=== PATIENT | male | born 1950 | race Caucasian/White ===

== ENCOUNTER 2018-07-06 05:19 | Inpatient (IN) ==
[2018-07-06] MEDS ORDERED: ceFAZolin 2 GM/NS 100 ML IV IV.SIG SCH ×2 (05:59)
[2018-07-06] MEDS ORDERED: Sodium Chlor 0.9% Inj 500 ML IV.SIG SCH ×2 (06:00)
[2018-07-06] MEDS ORDERED: Metoprolol Tartrate 25 MG Tablet PO SCH ×2 (06:00)
[2018-07-06] MEDS ORDERED: Chlorhexidine 4% Topical 120 APPLIC/120 ML Bottle TOPICAL SCH (06:00)
[2018-07-06] MEDS ORDERED: Chlorhexidine Gluconate 2% 1 Pack (2 Cloths) TOPICAL SCH ×2 (06:00)
[2018-07-06] MEDS ORDERED: Bupivacaine Liposomal PF 1.3% Inj 20 ML Vial ONE (06:04)
[2018-07-06] MEDS ORDERED: Lidocaine PF 1% Inj 5 ML Vial ONE (06:07)
[2018-07-06] MEDS ORDERED: Bupivacaine/Dextrose 0.75% Inj 2 ML Ampul ONE (06:15)
[2018-07-06] MEDS ORDERED: Propofol Inj 500 MG/50 ML Vial ONE (06:15)
[2018-07-06] MEDS ORDERED: Sodium Chlor 0.9% Inj 40 ML, Bupivacaine Liposo PF 1.3% Inj 20 ML P-ARTICULR SCH ×2 (07:00)
[2018-07-06] MEDS ORDERED: TRANEXAMIC ACID IV.SIG SCH ×2 (07:00→10:00)
[2018-07-06] MEDS ORDERED: SODIUM CHLOR 0.9% IV.SIG SCH ×2 (07:00→10:00)
[2018-07-06] MEDS ORDERED: Zolpidem Tartrate 5 MG Tablet PO PRN (09:01)
[2018-07-06] MEDS ORDERED: Morphine Inj 4 MG/ML Vial IV.PUSH PRN (09:01)
[2018-07-06] MEDS ORDERED: Post-op Orders (for Pharmacy) OTHER STA (09:01)
[2018-07-06] MEDS ORDERED: Bisacodyl 10 MG Supp RECTAL PRN (09:01)
[2018-07-06] MEDS ORDERED: Tranexamic Acid Inj 0 MG in Sodium Chlor 0.9% Inj 100 ML IV.SIG ONE (09:01)
[2018-07-06] MEDS ORDERED: Acetaminophen 325 MG Tablet PO PRN (09:01)
[2018-07-06] MEDS ORDERED: Aluminum/Magnesium/Simethacone Susp 30 ML UDC PO PRN (09:01)
--- NOTE | 2018-07-06 09:16 | P.OP ---
- Preoperative Diagnosis (1) Post-traumatic osteoarthritis of left knee - Postoperative Diagnosis (1) Post-traumatic osteoarthritis of left knee Date of procedure: 07/06/18 Procedure: Left total knee arthroplasty using [place] Triathlon prosthesis (uncemented). Anesthesia: regional (Adductor canal block), local (With Exparel), spinal Surgeon: Geal Worthy MD [employer] Pits Supervisor: VALDO Monroe Estimated blood loss (mL): 250 Tourniquet time (min): 0 Pathology: none sent Operation and Findings: Indications and Findings: This 67-year-old man had an anterior cruciate ligament reconstruction many years ago. He did relatively well until 2001 when he stood twisted his knee. He had arthroscopic knee surgery. About the past year he has had progressive worsening of arthritis in his knee with complaints of pain on ambulation, wrist pain, pain was standing from a seated position, crepitation and mechanical symptoms with the knee. His ambulation tolerance is only 1 mile with pain slowly. Treatment has included an times has included surgery in the past as noted, analgesics, anti-inflammatory agents, intra- articular corticosteroid injections, a stem cell injection and ambulatory aids. These have not given him any improvement in his condition. Physical findings showed surgical incisional scars with degenerative varum, crepitation throughout the entire range of motion, palpable osteophytes and instability. There was medial laxity especially. X-rays show severe osteoarthritis with loss of articular cartilage to [id number] particularly in the medial compartment with medial, lateral and patellofemoral osteophytes, medial eburnation and evidence of a prior anterior cruciate ligament reconstruction. Operative findings: There was severe osteoarthritis in the knee with loss of articular cartilage to [id number] in the medial and lateral compartments and also in the patellofemoral compartment. There were large osteophytes. There is significant eburnation throughout the knee. There were tunnels for prior anterior cruciate ligament reconstruction. The prosthesis used was a [place] Triathlon prosthesis. The femur was a size 6, uncemented, cruciate retaining. The tibial baseplate was a size 7 Tritanium with a 9 mm, cruciate retaining, X3 polyethylene spacer. The patella was a size 38 mm Tritanium backed asymmetric. The patient was brought to the clean-air operating suite after administration of a regional anesthetic by adductor canal block. A spinal anesthetic was administered. The position was supine with a small bolster under the hip on the operative side. A pneumatic tourniquet was applied to the upper thigh. The lower extremity was prepped with alcohol, Hibiclens and ChloraPrep and draped in the usual manner with the knee draped free. An appropriate timeout procedure was carried out. An incision was made from about 3 fingerbreadths above the superior medial pole of patella down the tibial tubercle on the medial side. The incision was deepened through the subcutaneous tissue to the retinacular structures which were exposed medially and laterally. A medial retinacular incision was made from the superior medial pole of patella down the tibial tubercle and up into the quadriceps tendon, splitting it longitudinally in the medial one third. The patella was reflected. The infrapatellar fat pad was debulked. The anterior cruciate ligament was excised. Medial and lateral meniscectomies were initiated. Fenestrations were made in the distal femur and proximal tibia for intramedullary referencing guides. The distal femoral cutting guide and jig were assembled for a 5, 8 mm cut. When this was fit into position,the cutting block was stabilized with pins. The jig was removed. The distal femoral cut was completed with the oscillating saw. The sizing guide was positioned in place along Whitesides line and the epicondylar axis and stabilized with pins. The femoral size was determined as noted above. The 4-in-1 cutting block was positioned in place. Anterior and posterior cuts were made followed by posterior and anterior chamfer cuts taking care to prevent injury to ligamentous structures. Osteophytes were trimmed from the distal femur. A bone plug was placed into the fenestration of the distal femur. The proximal tibia was exposed. The medial and lateral meniscectomies were completed. The proximal tibial cutting guide was positioned in place and stabilized with a pin for rotation. The depth of cut was verified with a stylus off the high side. The cutting block was stabilized with pins. The jig was removed. The depth of cut was verified and adjusted appropriately with the use of the spacer block. The proximal tibial cut was made with the oscillating saw taking care to prevent injury to neurovascular and ligamentous structures. Proximal tibial bone was removed. Local anesthetic was administered with Exparel in the posterior capsule. The fenestration in the tibia was plugged with a bone graft. The fenestration from the anterior cruciate ligament tunnel was likewise with a bone graft from the tibial resection. The tibial baseplate trial was positioned in place. After verifying the appropriate size, the base plate trial was positioned in place along with its spacer. The femoral component was impacted into place. The alignment was checked. The tibial baseplate was pinned in place on the tibia. Attention was directed to the patella. The patella drill guide was positioned in place for the appropriate sized patella. Patellar drilling was then carried out. The trial patella was positioned in place. The knee was taken through a range of motion which was easily 0 extension to 150. The patella trial was removed. The femoral drill holes were made. The femoral trials were removed. The tibial spacer was removed. A bone plug was placed into the proximal tibia. The tibial punch was impacted through the proximal tibial punch guide. This was all removed followed by placement of the tibial drill guide. The tibial drill holes were made. The guide was removed. The cut ends of bone were cleaned with pulse lavage. The tibial baseplate was impacted into place and seated appropriately. The spacer was inserted. The the femoral component was impacted into place and seated appropriately. The patella component was seated with the patellar vice and tightened appropriately. The knee was taken through a range of motion which was comparable to the previous range of motion with excellent stability in flexion and extension and appropriate patellofemoral tracking. The remainder of the Exparel was injected throughout the knee as a local anesthetic. Drains were brought out the superior lateral aspect of the suprapatellar pouch. Wound closure commenced using 0 Vicryl interrupted [id number] sutures for the capsular and fascial structures, 2-0 Vicryl interrupted simple sutures with buried knots for the subcutaneous tissues and 4-0 Monocryl, continuous subcuticular closure for the skin. The wound was dressed with Dermabond Prineo followed by a dry sterile dressing. Sterile soft roll with a cooling pad and Biju bandage from the base of the toes to mid thigh were applied. Patient was transferred from the operating room to the recovery room in satisfactory condition having tolerated procedure well. Counts were correct. Specimens: None. Estimated blood loss: 250 mL
--- NOTE | 2018-07-06 09:27 | P.DCO ---
- Physical Therapy Physical Therapy: Gait training Knee: Total knee, Protocol: Left, Gait training, Full weight bearing Left Lower Extremity Weight Bearing: Weight bearing as tolerated Left Lower Extremity Range of Motion: Active ROM (Active, active assisted, passive range of motion. Range of motion goal is 0 extension to 140 of flexion. Range of motion achieved in the operating room was 0 extension to 150 of flexion.) - Nursing Nursing: Dressing changes Dressing changes: Daily dressing change (Do not remove Dermabond Prineo.), Coverderm/Primapore - Certification Need for Home Health services: I have seen patient Thierry Desai on 07/06/18. My clinical findings support the need for the requested home health care services because: Need for Home Health Services: Limited mobility due to disease progression, Limited ability to care for self, High risk of falls Homebound Certification: I certify that my clinical findings support that this patient is homebound because: Homebound Certification: Post-op weakness, Unsteady gait/balance, Unsafe to leave home unassisted
--- NOTE | 2018-07-06 10:12 | XR ---
EXAM DATE: 07/06/2018 9:59 AM EDT AGE/SEX: 67 years / Male INDICATIONS: Post op left total knee replacement. CLINICAL DATA: This is the patient's initial encounter. Patient reports that signs and symptoms have been present for 1 day and indicates a pain score of 0/10. MEDICAL/SURGICAL HISTORY: Hypertension. None. COMPARISON: No prior exams available for comparison. FINDINGS: Postoperative left total knee replacement. Drain in the soft tissues. Normal alignment. No complicati on identified. CONCLUSION: Postoperative left total knee replacement with normal alignment. Electronically signed by: Jeff Coleman MD 07/06/2018 10:11 AM EDT
[2018-07-06] MEDS: Ketorolac Inj 30 MG/ML (IVP) Vial IV.PUSH SCH ×3 (10:25→21:22)
--- NOTE | 2018-07-06 10:25 | P.CONIM ---
History of Present Illness Service: [facility] Consult date: 07/06/18 Requesting Physician: Gael Worthy Reason for Consult: MEDICAL MANAGEMENT Primary Care Provider: Dewayne Little DO Family Provider: Dewayne Little DO Chief Complaint: MEDICAL MANAGEMENT SP LEFT TKA History of Present Illness: Patient is a 67-year-old gentleman who underwent a left total knee arthroplasty by Dr. Worthy today. We have now been consulted to help regarding medical management. His past medical history is significant for enlarged prostate, GERD, history of urinary frequency, hypertension, hypothyroidism, joint pain, osteoporosis, rheumatoid arthritis, and glasses. Past surgical history includes arthroscopy of the left knee, repair of the anterior cruciate ligament of the left knee, and right rotator cuff repair Review of Systems All other systems reviewed negative except as stated in HPI [facility] - History History Provided By: Patient - Medical History Medical History: Medical History (Last Reviewed 07/06/18 @ 05:48 by Marlen Arango) Enlarged prostate GERD (gastroesophageal reflux disease) History of urinary frequency Hypertension Hypothyroidism Joint pain Osteoporosis Rheumatoid arthritis Wears glasses - Surgical History Surgical History: Surgical History (Last Reviewed 07/06/18 @ 05:48 by Marlen Arango) History of arthroscopy of left knee History of repair of anterior cruciate ligament of left knee History of repair of right rotator cuff - Family History Family History: Family History (Last Updated 07/06/18 @ 10:20 by Reynaldo Cannon DO) Other Family history of hypertension - Tobacco History Second Hand Smoke Exposure: No Tobacco Use In Past 30 Days: Yes Smoking Status: Never smoker Tobacco Type: Smokeless Tobacco - Alcohol History How Often Do You Have a Drink Containing Alcohol: Never - Substance Use History Substance History: No History of Abuse - Travel History History of Recent Travel: No Recent Travel in the [place] Within the Last 8 Weeks: No Recent Travel Out of the Country Within the Last 8 Weeks: No Medications and Allergies Active Medications: Active Medications Acetaminophen (Tylenol) 650 mg PO Q6H PRN PRN Reason: Pain Less Than 3 On Scale Hydrocodone Bitart/Acetaminophen ([place] 7.5/325) 1 tab PO Q4H PRN PRN Reason: PAIN SCALE 4 TO 6 MODERATE Hydrocodone Bitart/Acetaminophen ([place] 7.5/325) 2 tab PO Q6H PRN PRN Reason: PAIN SCALE 7 TO 10 SEVERE Al Hydrox/Mg Hydrox/Simethicone (Mag-Al Plus Susp Liq) 30 ml PO Q6H PRN PRN Reason: INDIGESTION Al Hydroxide/Mg Hydroxide (Milk Of Magnesia Liq) 30 ml PO BID PRN PRN Reason: Mild Constipation Amlodipine Besylate (Norvasc) 5 mg PO DAILY [facility] Aspirin (Aspirin Chew) 81 mg PO BID [facility] Bisacodyl (Dulcolax Supp) 10 mg RECTAL DAILY PRN PRN Reason: SEVERE CONSITIPATION Chlorhexidine Gluconate (Chlorhexidine 2% Cloth) 3 pack TOPICAL DRAMATIC DIRECTOR [facility] Stop: 07/09/18 05:55 Last Admin: 07/06/18 05:35 Dose: 3 pack Chlorhexidine Gluconate (Hibiclens 4% Topical) 1 applicatio TOPICAL ONCE [facility] Stop: 07/10/18 05:59 Sodium Chloride 40 ml/ (Bupivacaine Liposome 20 ml) 0 ml P-ARTICULR ONCE [facility] Stop: 07/06/18 13:00 Last Admin: 07/06/18 07:15 Dose: 1 bag Cyanocobalamin (Vitamin B12) 1,000 mcg PO DAILY [facility] Diphenhydramine HCl (Benadryl) 25 mg PO Q6H PRN PRN Reason: ITCHING Folic Acid (Folic Acid) 1 mg PO DAILY [facility] HCTZ/Spironolactone (Aldactazide 25/25 Mg) 1 tab PO BID [facility] Lactated Ringer's (Lr 1000 Ml Inj) 1,000 mls @ 30 mls/hr IV.SIG .Q24H [facility] Stop: 07/09/18 05:55 Last Infusion: 07/06/18 08:34 Dose: Infused Sodium Chloride (Ns Inj) 500 mls @ 30 mls/hr IV.SIG .Q10H [facility] Stop: 07/09/18 05:55 Cefazolin Sodium 2,000 mg/ (Sodium Chloride) 100 mls @ 200 mls/hr IV.SIG DRAMATIC DIRECTOR [facility] Stop: 07/06/18 23:59 Last Infusion: 07/06/18 07:04 Dose: Infused Tranexamic Acid 918 mg/ Sodium (Chloride) 109.18 mls @ 200 mls/hr IV.SIG ONCE [facility] Stop: 07/06/18 13:00 Last Infusion: 07/06/18 07:23 Dose: Infused Tranexamic Acid 918 mg/ Sodium (Chloride) 109.18 mls @ 200 mls/hr IV.SIG ONCE [facility] Stop: 07/06/18 11:00 Last Admin: 07/06/18 09:55 Dose: 200 mls/hr Cefazolin Sodium 1,000 mg/ (Sodium Chloride) 100 mls @ 200 mls/hr IV.SIG Q6H [facility] Stop: 07/06/18 22:29 Lactated Ringer's (Lr 1000 Ml Inj) 1,000 mls @ 80 mls/hr IV.CONT .[id number] [facility] Ketorolac Tromethamine (Toradol Inj) 15 mg IV.PUSH Q6H [facility] Stop: 07/08/18 04:01 Lactulose (Lactulose Liq) 30 ml PO DAILY PRN PRN Reason: SEVERE CONSITIPATION Levothyroxine Sodium (Synthroid) 50 mcg PO DAILY@0600 [facility] Losartan Potassium (Cozaar) 100 mg PO DAILY [facility] Metformin HCl (Glucophage) 500 mg PO BID [facility] Methotrexate (Rheumatrex) 10 mg PO DAILY [facility] Metoprolol Tartrate (Lopressor) 25 mg PO DRAMATIC DIRECTOR [facility] Stop: 07/09/18 05:55 Morphine Sulfate (Morphine Inj) 2 mg IV.PUSH Q3H PRN PRN Reason: BREAKTHROUGH PAIN Multivitamins/Minerals (Theragran-M) 1 tab PO DAILY [facility] Ondansetron HCl (Zofran Odt) 4 mg PO Q6H PRN PRN Reason: NAUSEA OR VOMITING Pantoprazole Sodium (Protonix) 20 mg PO DAILY [facility] Povidone Iodine (Betadine 5% Antisepsis Kit) 1 applicatio EACH NARE DRAMATIC DIRECTOR [facility] Stop: 07/09/18 05:55 Last Admin: 07/06/18 06:05 Dose: 1 applicatio Prednisone (Deltasone) 10 mg PO DAILY [facility] Pyridoxine HCl (Vitamin B-6) 100 mg PO DAILY [facility] Senna/Docusate Sodium (Mylene-Colace) 1 tab PO BID [facility] Sennosides (Senokot) 17.2 mg PO BID PRN PRN Reason: Moderate Constipation Sodium Chloride (Ns Flush) 2 ml IV.FLUSH BID [facility] Sodium Chloride (Ns Flush) 2 ml IV.FLUSH PRN PRN PRN Reason: FLUSH AFTER USING IV ACCESS Zolpidem Tartrate (Ambien) 5 mg PO HS PRN PRN Reason: INSOMNIA Allergies Allergy/AdvReac Type Severity Reaction Status Date / Time No Known Allergies Allergy Verified 07/06/18 05:48 Home Medications Medication Instructions Recorded Confirmed Type amlodipine 5 mg PO DAILY 06/21/18 07/06/18 History aspirin [Aspirin Low Dose] 81 mg PO DAILY 06/21/18 07/06/18 History folic acid 1 mg PO DAILY 06/21/18 07/06/18 History levothyroxine 50 mcg PO DAILY 06/21/18 07/06/18 History losartan 100 mg PO DAILY 06/21/18 07/06/18 History mecobalamin (vitamin B12) 1,000 mcg SUBLINGUAL DAILY 06/21/18 07/06/18 History metformin 500 mg PO BID 06/21/18 07/06/18 History methotrexate sodium 4 tab PO DAILY 06/21/18 07/06/18 History btyewimr-yje-LR-lycopen-lutein 1 tab PO DAILY 06/21/18 07/06/18 History [Centrum Silver] omeprazole 20 mg PO DAILY 06/21/18 07/06/18 History potassium gluconate 550 mg PO DAILY 06/21/18 07/06/18 History prednisone 10 mg PO DAILY 06/21/18 07/06/18 History pyridoxine (vitamin B6) 100 mg PO DAILY 06/21/18 07/06/18 History spironolacton-hydrochlorothiaz 1 tab PO BID 06/21/18 07/06/18 History Exam Vital signs: Vital Signs 07/06/18 06:01 07/06/18 06:17 07/06/18 09:28 Temperature 97.1 F L 97.5 F L Pulse Rate 92 H 86 80 Respiratory Rate 18 14 Blood Pressure 133/90 101/60 Pulse Oximetry 100 99 98 07/06/18 09:30 07/06/18 09:45 Temperature Pulse Rate 81 79 Respiratory Rate 14 14 Blood Pressure 105/63 Pulse Oximetry 99 100 Intake & Output 07/05/18 07/06/18 07/06/18 18:59 06:59 18:59 Intake Total 2409.18 / 2409.18 Output Total 250 / 250 Balance 2159.18 / 2159.18 Weight 91.8 kg Intake: IV 1209.18 / 1209.18 LR 1000 mL Inj 1,000 ML @ 30 1000 / 1000 mls/hr IV.SIG .Q24H [facility] Rx#: [id number] Cyklokapron Inj 918 MG In NS 109.18 / 109.18 Inj 100 ML @ 200 mls/hr IV.SIG ONCE [facility] Rx#:[id number] Ancef Inj 2,000 MG In NS Inj 80 100 / 100 ML @ 200 mls/hr IV.SIG DRAMATIC DIRECTOR [facility] Rx#:[id number] Anesthesia Amount 1200 / 1200 Output: Estimated Blood Loss 250 / 250 Other: Weight On Admission 91.777 kg Narrative: GENERAL: Awake alert and oriented 3 talkative and cooperative appears to be in good spirits does not appear to be in much pain SKIN: Warm and dry. HEAD: Atraumatic. Normocephalic. EYES: Pupils equal and round. No scleral icterus. No injection or drainage. EOMI ENT: No nasal bleeding or discharge. Mucous membranes pink and moist. Tongue is midline NECK: Trachea midline. No JVD. Supple CARDIOVASCULAR: Regular rate and rhythm. S1-S2 no S3 or S4 RESPIRATORY: No accessory muscle use. Clear to auscultation. Breath sounds equal bilaterally. GASTROINTESTINAL: Abdomen soft, non-tender, nondistended. Hepatic and splenic margins not palpable. MUSCULOSKELETAL: Extremities without clubbing, cyanosis, or edema. No obvious deformities. Left knee is dressed NEUROLOGICAL: Awake and alert. No obvious cranial nerve deficits. Motor grossly within normal limits. Five out of 5 muscle strength in the arms and legs. Normal speech. PSYCHIATRIC: Appropriate mood and affect; insight and judgment normal. Results - Labs Labs: Laboratory Results - last 24 hr 07/06/18 05:50 Blood Type A Positive Blood Type Recheck Required Antibody Screen Negative - Imaging Impressions Knee X-Ray 07/06/18 08:58 CONCLUSION: Postoperative left total knee replacement with normal alignment. Assessment and Plan - Plan Status post left total knee arthroplasty for severe rheumatoid arthritis and osteoarthritis We will defer management and pain control to orthopedics BPH monitor for issues with urination GERD continue on home medications continue on omeprazole or the equivalent Hypertension continue on home medications-continue on amlodipine, continue on losartan, continue on spironolactone hydrochlorothiazide Hypothyroidism we will check TSH and free T4 and continue home medications continue on 75 MCG's of levothyroxine Rheumatoid arthritis will adjust medications continue on folic acid, continue on methotrexate, continue on prednisone continue on vitamin B6 Diabetes mellitus we will continue sliding scale coverage with Accu-Cheks before meals and at bedtime patient is on metformin at home Continue DVT and GI prophylaxis A.m. labs Physical therapy and occupational therapy to eval and treat Patient will be going home and will need home health care at discharge Code Status: Full code Discussed Condition With: RN and patient Discharge Planning: Once cleared by orthopedic surgery will go home with home health
[2018-07-06] MEDS: SPIRONOLACTONE PO SCH ×2 (10:29→23:13)
[2018-07-06] MEDS: HCTZ PO SCH ×2 (10:29→23:13)
[2018-07-06] MEDS: Levothyroxine 50 MCG Tablet PO SCH (10:29)
[2018-07-06] MEDS: predniSONE 10 MG Tablet PO SCH (10:29)
[2018-07-06] MEDS: amLODIPine 5 MG Tablet PO SCH (10:30)
[2018-07-06] MEDS: Pantoprazole Sodium 20 MG DR Tablet PO SCH (10:30)
[2018-07-06] MEDS: Folic Acid 1 MG Tablet PO SCH (10:30)
[2018-07-06] MEDS: Multivitamin/Minerals Therapeutic Tablet PO SCH (10:49)
[2018-07-06] MEDS ORDERED: Phenylephrine/NS 1000 MCG/10ML Syringe IV.PUSH ONE (12:00)
[2018-07-06] MEDS ORDERED: Lidocaine PF 1% Inj 5 ML Syringe INFILTRATN ONE (12:00)
[2018-07-06] MEDS: Senna/Docusate Sodium 8.6/50 MG Tablet PO SCH (21:21)
[2018-07-06] MEDS ORDERED: Dextrose 50% in Water 50 ML Vial IV.PUSH PRN (22:17)
[2018-07-07] MEDS: Ketorolac Inj 30 MG/ML (IVP) Vial IV.PUSH SCH ×2 (03:59→12:11)
[2018-07-07 05:27] LABS: Baso % (Auto) 0.2 % (0.0-2.0); Eos % (Auto) 0.1 % (0.0-4.0); Hematocrit 35.1 % (39.0-51.0); Hemoglobin 11.7 gm/dL (13.0-17.0); Lymph # (Auto) 2.3 th/mm3 (1.0-4.8); Lymph % (Auto) 10.5 % (9.0-44.0); Mean Corpuscular HGB Conc 33.3 % (32.0-36.0); Mean Corpuscular Volume 93.1 fL (80.0-100.0); Mean Platelet Volume 6.1 fL (7.0-11.0); Mono # (Auto) 1.6 th/mm3 (0.0-0.9); Mono % (Auto) 7.3 % (0.0-8.0); Neut # (Auto) 17.9 th/mm3 (1.8-7.7); Neut % (Auto) 81.9 % (16.0-70.0); Platelet Count 292 th/mm3 (150-450); Red Blood Count 3.77 mil/mm3 (4.50-5.90); Red Cell Distribution Width 17.3 % (11.6-17.2); White Blood Count 21.9 th/mm3 (4.0-11.0)
[2018-07-07 05:46] LABS: Albumin 2.4 g/dL (3.4-5.0); Anion Gap 10 meq/L (5-15); Blood Urea Nitrogen 35 mg/dL (7-18); Calcium 8.9 mg/dL (8.5-10.1); Carbon Dioxide 23.8 meq/L (21.0-32.0); Chloride 104 meq/L (98-107); Glomerular Filtration Rate 59 mL/min (>89); Glucose,Random 171 mg/dL (74-106); Potassium 4.3 meq/L (3.5-5.1); Sodium 138 meq/L (136-145)
[2018-07-07 05:47] LABS: Aspartate Aminotransferase 15 U/L (15-37); Cholesterol 135 mg/dL (120-200); Triglycerides 91 mg/dL (42-150)
[2018-07-07 05:56] LABS: Alanine Aminotransferase 32 U/L (12-78); Alkaline Phosphatase 48 U/L (45-117); Chol/HDL Ratio 1.87 Ratio; Free T4 (Free Thyroxine) 1.05 ng/dL (0.76-1.46); HDL Cholesterol 72.1 mg/dL (40.0-60.0); LDL Cholesterol,Calculated 45 mg/dL (0-99); Thyroid Stimulating Hormone 0.376 uIU/mL (0.358-3.740); Total Protein 6.1 g/dL (6.4-8.2)
--- NOTE | 2018-07-07 06:06 | P.PNOP ---
Subjective Interval history: Postop day #1 He is doing well. He has minimal complaints related to the knee at this time. He is happy with his progress to date. Physical therapy reports that the ambulation distance was 330 feet. The range of motion was 0 extension to 90 of flexion. Physical Exam Vital signs: Vital Signs 07/06/18 06:17 07/06/18 09:28 07/06/18 09:30 Temperature 97.5 F L Pulse Rate 86 80 81 Respiratory Rate 14 14 Blood Pressure 101/60 Pulse Oximetry 99 98 99 07/06/18 09:45 07/06/18 10:00 07/06/18 10:15 Temperature 97.4 F L Pulse Rate 79 79 77 Respiratory Rate 14 16 14 Blood Pressure 105/63 115/72 119/75 Pulse Oximetry 100 100 100 07/06/18 10:30 07/06/18 11:15 07/06/18 18:00 Temperature 97.6 F 97.5 F L Pulse Rate 79 80 102 H Respiratory Rate 17 18 18 Blood Pressure 120/75 123/79 123/79 Pulse Oximetry 97 96 07/06/18 20:00 07/07/18 00:00 07/07/18 04:00 Temperature 97.8 F 98.1 F 97.2 F L Pulse Rate 93 H 89 87 Respiratory Rate 18 18 18 Blood Pressure 119/77 128/79 128/90 Pulse Oximetry 95 95 98 Intake & Output 07/06/18 07/06/18 07/07/18 06:59 18:59 06:59 Intake Total 3198.36 / 3198.36 Output Total 350 / 350 150 / 150 Balance 2848.36 / 2848.36 -150 / -150 Weight 91.8 kg 91.626 kg Intake: IV 1518.36 / 1518.36 LR 1000 mL Inj 1,000 ML @ 30 1000 / 1000 mls/hr IV.SIG .Q24H [facility] Rx#: [id number] Cyklokapron Inj 918 MG In NS 218.36 / 218.36 Inj 100 ML @ 200 mls/hr IV.SIG ONCE [facility] Rx#:[id number] Ancef Inj 1,000 MG In NS Inj 200 / 200 100 ML @ 200 mls/hr IV.SIG Q6H [facility] Rx#:[id number] Ancef Inj 2,000 MG In NS Inj 80 100 / 100 ML @ 200 mls/hr IV.SIG PIG FURNACE [employer]PERATOR [facility] Rx#:[id number] Oral 480 / 480 Anesthesia Amount 1200 / 1200 Output: Urine 100 / 100 Estimated Blood Loss 250 / 250 Wound Drainage 150 / 150 # 2 Left Knee Hemovac 150 / 150 Other: Date of Last Bowel Movement 07/05/18 Weight On Admission 91.777 kg Narrative: He is resting comfortably, supine in bed, in the CPM. The neurovascular status is intact. His dressing is dry and intact. Results - Labs CBC & Chem 7: 07/07/18 04:22 07/07/18 04:22 Laboratory Results - last 24 hr 07/06/18 07/06/18 07/07/18 05:50 21:30 04:22 WBC 21.9 H RBC 3.77 L Hgb 11.7 L Hct 35.1 L MCV 93.1 MCH 31.0 MCHC 33.3 RDW 17.3 H Plt Count 292 MPV 6.1 L Prelim Diff (Auto) Slide review pending Neut % (Auto) 81.9 H Lymph % (Auto) 10.5 [place] % (Auto) 7.3 Eos % (Auto) 0.1 Baso % (Auto) 0.2 Neut # (Auto) 17.9 H Lymph # (Auto) 2.3 [place] # (Auto) 1.6 H Eos # (Auto) 0.0 Baso # (Auto) 0.0 Differential Comment . Sodium Potassium Chloride Carbon Dioxide Anion Gap BUN Creatinine Estimated GFR POC Glucose 314 H Random Glucose Calcium Phosphorus Magnesium Total Bilirubin AST ALT Alkaline Phosphatase Total Protein Albumin Triglycerides Cholesterol LDL Cholesterol, Calc HDL Cholesterol Cholesterol/HDL Ratio TSH Free T4 Blood Type A Positive Blood Type Recheck Required Antibody Screen Negative 07/07/18 04:22 WBC RBC Hgb Hct MCV MCH MCHC RDW Plt Count MPV Prelim Diff (Auto) Neut % (Auto) Lymph % (Auto) [place] % (Auto) Eos % (Auto) Baso % (Auto) Neut # (Auto) Lymph # (Auto) [place] # (Auto) Eos # (Auto) Baso # (Auto) Differential Comment Sodium 138 Potassium 4.3 Chloride 104 Carbon Dioxide 23.8 Anion Gap 10 BUN 35 H Creatinine 1.23 Estimated GFR 59 L POC Glucose Random Glucose 171 H Calcium 8.9 Phosphorus 3.0 Magnesium 2.0 Total Bilirubin 0.2 AST 15 ALT 32 Alkaline Phosphatase 48 Total Protein 6.1 L Albumin 2.4 L Triglycerides 91 Cholesterol 135 LDL Cholesterol, Calc 45 HDL Cholesterol 72.1 H Cholesterol/HDL Ratio 1.87 TSH 0.376 Free T4 1.05 Blood Type Blood Type Recheck Antibody Screen - Imaging Impressions Knee X-Ray 07/06/18 08:58 CONCLUSION: Postoperative left total knee replacement with normal alignment. - Procedures Left total knee arthroplasty using [place] Triathlon prosthesis (uncemented) on 07/06/2018. Assessment and Plan - Ortho Post Op Day # 1 - Problem List (1) Status post total left knee replacement not using cement Code(s): Z96.652 - Presence of left artificial knee joint Status: Acute Plan: Continue postop care and PT. - Assessment and Plan Condition: Good. Orthopedically stable. DVT prophylaxis: TEDs, aspirin, sequentials. Discharge plans: Home with home health care. An appointment was scheduled through the office. Prescriptions: [place] 7.5/325; Patient is having significant pain caused by a total knee arthroplasty which will last more than 3 days. Trial of Tylenol has not helped. I believe that it is medically necessary to treat patients pain because it is affecting patients ability to participate in postoperative rehabilitation and perform activities of daily living in a comfortable and efficient manner.
[2018-07-07] MEDS: Levothyroxine 50 MCG Tablet PO SCH (06:28)
--- NOTE | 2018-07-07 06:53 | P.DS ---
Date of admission: 07/06/18 05:19 Primary care physician: Dewayne Little DO Attending physician on discharge: Gael Worthy Anticipated date of discharge: 07/07/18 Brief History from admission: This 67-year-old man has had long-standing left knee secondary to injuries in the past with a prior anterior cruciate ligament reconstruction. He has had progressive worsening of the knee in spite of conservative measures with anti- inflammatory agents, analgesics, activity modification and intra-articular steroids. Physical findings showed laxity in the knee with patient on motion. Neurovascular status was intact. X-ray showed severe osteoarthritis with loss of articular cartilage to [id number], eburnation and osteophytes. 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 The above noted operative procedure was carried out that day. Preoperatively prophylactic antibiotics were administered Ancef according to protocol. These were continued postoperatively. The patient also received tranexamic acid to help with hemostasis according to protocol. In the postanesthesia care unit a continuous passive motion device was initiated. Also initiated were mechanical methods of DVT prophylaxis in the form of CHRISTINA stockings and sequentials. Physical therapy was initiated on the day of surgery. On postoperative day #1 physical therapy continued. The use of the continuous passive motion device continued. DVT prophylaxis with aspirin 81 mg was initiated at this time. The patient continued physical therapy throughout the hospitalization. The distance walked and range of motion improved throughout the hospitalization. The patient was discharged on postoperative day 1 with the disposition being to home with home health care. An appointment for follow-up was made prior to admission. - Time Spent with Patient Total time spent providing and/or coordinating discharge services: Greater than 30 minutes - Quality: VTE Deep Vein Thrombosis/Pulmonary Embolism Present on Admission: No Exam Vital signs: Vital Signs 07/06/18 09:28 07/06/18 09:30 07/06/18 09:45 Temperature 97.5 F L Pulse Rate 80 81 79 Respiratory Rate 14 14 14 Blood Pressure 101/60 105/63 Pulse Oximetry 98 99 100 07/06/18 10:00 07/06/18 10:15 07/06/18 10:30 Temperature 97.4 F L Pulse Rate 79 77 79 Respiratory Rate 16 14 17 Blood Pressure 115/72 119/75 120/75 Pulse Oximetry 100 100 07/06/18 11:15 07/06/18 18:00 07/06/18 20:00 Temperature 97.6 F 97.5 F L 97.8 F Pulse Rate 80 102 H 93 H Respiratory Rate 18 18 18 Blood Pressure 123/79 123/79 119/77 Pulse Oximetry 97 96 95 07/07/18 00:00 07/07/18 04:00 Temperature 98.1 F 97.2 F L Pulse Rate 89 87 Respiratory Rate 18 18 Blood Pressure 128/79 128/90 Pulse Oximetry 95 98 Intake & Output 07/06/18 07/06/18 07/07/18 06:59 18:59 06:59 Intake Total 3198.36 / 3198.36 Output Total 350 / 350 150 / 150 Balance 2848.36 / 2848.36 -150 / -150 Weight 91.8 kg 91.626 kg Intake: IV 1518.36 / 1518.36 LR 1000 mL Inj 1,000 ML @ 30 1000 / 1000 mls/hr IV.SIG .Q24H [facility] Rx#: [id number] Cyklokapron Inj 918 MG In NS 218.36 / 218.36 Inj 100 ML @ 200 mls/hr IV.SIG ONCE [facility] Rx#:[id number] Ancef Inj 1,000 MG In NS Inj 200 / 200 100 ML @ 200 mls/hr IV.SIG Q6H [facility] Rx#:[id number] Ancef Inj 2,000 MG In NS Inj 80 100 / 100 ML @ 200 mls/hr IV.SIG POT ROOM TAPPER [facility] Rx#:[id number] Oral 480 / 480 Anesthesia Amount 1200 / 1200 Output: Urine 100 / 100 Estimated Blood Loss 250 / 250 Wound Drainage 150 / 150 # 2 Left Knee Hemovac 150 / 150 Other: Date of Last Bowel Movement 07/05/18 Weight On Admission 91.777 kg Narrative: He is resting comfortably, supine in bed, in the CPM. The neurovascular status is intact. The dressing is dry and intact. Results Procedures completed during hospitalization: Left total knee arthroplasty using [place] Triathlon prosthesis (uncemented) on 07/06/2018. Labs on day of discharge: Labs from last 24 hours 07/07/18 07/07/18 07/07/18 04:22 04:22 04:22 WBC 21.9 H RBC 3.77 L Hgb 11.7 L Hct 35.1 L MCV 93.1 MCH 31.0 MCHC 33.3 RDW 17.3 H Plt Count 292 MPV 6.1 L Prelim Diff (Auto) Slide review pending Neut % (Auto) 81.9 H Lymph % (Auto) 10.5 [place] % (Auto) 7.3 Eos % (Auto) 0.1 Baso % (Auto) 0.2 Neut # (Auto) 17.9 H Lymph # (Auto) 2.3 [place] # (Auto) 1.6 H Eos # (Auto) 0.0 Baso # (Auto) 0.0 WBC Differential Pending Differential Comment . Sodium 138 Potassium 4.3 Chloride 104 Carbon Dioxide 23.8 Anion Gap 10 BUN 35 H Creatinine 1.23 Estimated GFR 59 L POC Glucose Random Glucose 171 H Hemoglobin A1c Pending Calcium 8.9 Phosphorus 3.0 Magnesium 2.0 Total Bilirubin 0.2 AST 15 ALT 32 Alkaline Phosphatase 48 Total Protein 6.1 L Albumin 2.4 L Triglycerides 91 Cholesterol 135 LDL Cholesterol, Calc 45 HDL Cholesterol 72.1 H Cholesterol/HDL Ratio 1.87 TSH 0.376 Free T4 1.05 Blood Type Blood Type Recheck Antibody Screen 07/06/18 07/06/18 21:30 05:50 WBC RBC Hgb Hct MCV MCH MCHC RDW Plt Count MPV Prelim Diff (Auto) Neut % (Auto) Lymph % (Auto) [place] % (Auto) Eos % (Auto) Baso % (Auto) Neut # (Auto) Lymph # (Auto) [place] # (Auto) Eos # (Auto) Baso # (Auto) WBC Differential Differential Comment Sodium Potassium Chloride Carbon Dioxide Anion Gap BUN Creatinine Estimated GFR POC Glucose 314 H Random Glucose Hemoglobin A1c Calcium Phosphorus Magnesium Total Bilirubin AST ALT Alkaline Phosphatase Total Protein Albumin Triglycerides Cholesterol LDL Cholesterol, Calc HDL Cholesterol Cholesterol/HDL Ratio TSH Free T4 Blood Type A Positive Blood Type Recheck Required Antibody Screen Negative - Impressions ITS Impressions Knee X-Ray 07/06/18 08:58 CONCLUSION: Postoperative left total knee replacement with normal alignment. Discharge Plan - Discharge Disposition Patient Disposition: W/Home Health Service - Discharge Condition Condition: Stable - Discharge Details Anticipated Discharge Date: 07/07/18 - Physicians Team Primary Care Provider: Dewayne Little Attending Provider: Gael Worthy Other Providers: Kj Rahman MD ; [facility] [place] ; Reynaldo Cannon DO - Rxs /Orders / Referrals /Forms Prescriptions: New aspirin 81 mg Tablet,Chewable 81 mg PO BID RF: 0 Continue amlodipine 5 mg Tablet 5 mg PO DAILY folic acid 1 mg Tablet 1 mg PO DAILY levothyroxine 50 mcg Tablet 50 mcg PO DAILY losartan 100 mg Tablet 100 mg PO DAILY mecobalamin (vitamin B12) 1,000 mcg Tablet,Disintegrating 1,000 mcg SUBLINGUAL DAILY metformin 500 mg Tablet 500 mg PO BID [id number]-lutein [Centrum Silver] 0.4-300-250 mg-mcg-mcg Tablet 1 tab PO DAILY omeprazole 20 mg Capsule,Delayed Release(Dr/Ec) 20 mg PO DAILY potassium gluconate 550 mg (90 mg) Tablet 550 mg PO DAILY prednisone 10 mg Tablet 10 mg PO DAILY pyridoxine (vitamin B6) 100 mg Tablet 100 mg PO DAILY spironolacton-hydrochlorothiaz 25-25 mg Tablet 1 tab PO BID Discontinued aspirin [Aspirin Low Dose] 81 mg Tablet,Delayed Release (Dr/Ec) 81 mg PO DAILY methotrexate sodium 2.5 mg Tablet 4 tab PO DAILY Referrals: Gael Worthy MD [Physician] - See Instructions Dewayne Little DO [Primary Care Provider] - See Instructions - Discharge Instructions Patient Printed Instructions: How to Choose and Use a Walker (GEN), Knee Replacement (DC), Knee Replacement (GEN) Additional Instructions: Regarding use of Methotrexate and Prednisone:: - Methotrexate is an immune system suppressant and can increase the risk of infection following surgery. For a surgery such as a knee replacement, it should not be taken for at least 2 weeks following the procedure. So, ok to resume Methotrexate following the 3rd week after surgery. - Prednisone is an antiinflammatory medicine that can delay tissue healing, since inflammation is part of healing. This can lead to reduced integrity of the skin and bone in the healing process. Do not take Prednisone for 3-4 weeks after surgery. RX FOR [facility]CO SENT HOME WITH PATIENT. - Post Discharge Care Plan Care Plan Goals: Your Health Problems: Goals to Promote Your Health: * To prevent worsening of your condition * To maintain your health at the optimal level Directions to Meet Your Goals: * Take your medications as prescribed * Follow your dietary instruction * Follow activity as directed * Keep your appointments as scheduled * Take your immunizations and boosters as scheduled * If your symptoms worsen call your PCP * If no PCP go to Urgent Care or Emergency Room Smoking is dangerous to your health. Avoid second hand smoke. You may reach the 24-hour crisis hotline for domestic abuse at . * * Discharge Care Plan Goals for Total Knee Replacement You have undergone knee replacement surgery. Your doctor replaced your painful joint with an artificial joint to relieve pain and restore movement. Here are some goals to help you heal well. Directions to Meet your Goals: 1. Activity & Exercises: * Take pain medicine as directed by your doctor. * Sit in chairs with arms. The arms make it easier for you to stand up or sit down. * Dont sit for more than 30 to 45 minutes at one time. * Nap if you are tired, but dont stay in bed all day. * Sleep with a pillow under your ankle, not your knee. Be sure to change the position of your leg during the night. * Wear the support stockings you were given in the hospital as directed by your surgeon. 2. Prevent Falls/Injury: The hogan to successful recovery is movement with walking and exercising your knee as directed by your doctor. * Arrange your household to keep the items you need handy. Keep everything else out of the way. * Remove items that may cause you to fall, such as throw rugs and electrical cords. * Use nonslip bath mats, grab bars, an elevated toilet seat, and a shower chair in your bathroom * Sit on a shower stool or chair when you shower to keep from falling. * Until your balance, flexibility, and strength improve, use a cane, crutches, a walker, handrails, or someone to help you. * Keep your hands free by using a backpack, kyleigh pack, apron, or pockets to carry things * Walk up and down stairs with support. Try one step at a time. Use the railing if possible. * Dont drive until your doctor says its OK. * Dont drive while you are taking opioid pain medicine. 3. Precautions: * Prevent infection. Any infection will need to be treated immediately. Call your doctor right away if you think you might have an infection. * Tell your dentist that you have an artificial joint and take antibiotics as prescribed before any dental work. * Tell all your healthcare providers about your artificial joint before any medical procedure. * Maintain a healthy weight. Get help to lose any extra pounds. Added body weight puts stress on the knee. * Your medications may include blood-thinning medicine to prevent blood clots or antibiotics to prevent infection-prevent any falls or cuts 4. Incision Care: * Prevent infection by washing your hands often. If an infection occurs, it will need to be treated right away. * Call your doctor right away if you think you may have an infection. Symptoms include a fever or an incision that leaks white, green, or yellow fluid. * Don't soak your incision in water until your doctor says its OK. This means no hot tubs, bathtubs, or swimming pools. * Follow your doctor's instructions for changing the dressing. * Dont rub the incision, or apply creams or lotions to it. * If you notice any redness or drainage around the bandage site, contact your surgeon's office immediately. 5. Follow-Up: Do Not miss your follow-up appointment. Keep up with all your appointments and yearly check ups When to call your doctor: Call your doctor right away if you have: Fever of 100.4F (38C) or higher, or as directed by your doctor Shaking chills Stiffness, or inability to move the knee Increased swelling in your leg Increased redness, tenderness, or swelling in or around the knee incision Drainage from the knee incision Increased knee pain Call 911: Call 911 right away if you have: Chest pain Shortness of breath Any pain or tenderness in your calf Your Health Problems: Goals to Promote Your Health: * To prevent worsening of your condition * To maintain your health at the optimal level Directions to Meet Your Goals: * Take your medications as prescribed * Follow your dietary instruction * Follow activity as directed * Keep your appointments as scheduled * Take your immunizations and boosters as scheduled * If your symptoms worsen call your PCP * If no PCP go to Urgent Care or Emergency Room Smoking is dangerous to your health. Avoid second hand smoke. You may reach the 24-hour crisis hotline for domestic abuse at . * * Discharge Care Plan Goals for Total Knee Replacement You have undergone knee replacement surgery. Your doctor replaced your painful joint with an artificial joint to relieve pain and restore movement. Here are some goals to help you heal well. Directions to Meet your Goals: 1. Activity & Exercises: * Take pain medicine as directed by your doctor. * Sit in chairs with arms. The arms make it easier for you to stand up or sit down. * Dont sit for more than 30 to 45 minutes at one time. * Nap if you are tired, but dont stay in bed all day. * Sleep with a pillow under your ankle, not your knee. Be sure to change the position of your leg during the night. * Wear the support stockings you were given in the hospital as directed by your surgeon. 2. Prevent Falls/Injury: The hogan to successful recovery is movement with walking and exercising your knee as directed by your doctor. * Arrange your household to keep the items you need handy. Keep everything else out of the way. * Remove items that may cause you to fall, such as throw rugs and electrical cords. * Use nonslip bath mats, grab bars, an elevated toilet seat, and a shower chair in your bathroom * Sit on a shower stool or chair when you shower to keep from falling. * Until your balance, flexibility, and strength improve, use a cane, crutches, a walker, handrails, or someone to help you. * Keep your hands free by using a backpack, kyleigh pack, apron, or pockets to carry things * Walk up and down stairs with support. Try one step at a time. Use the railing if possible. * Dont drive until your doctor says its OK. * Dont drive while you are taking opioid pain medicine. 3. Precautions: * Prevent infection. Any infection will need to be treated immediately. Call your doctor right away if you think you might have an infection. * Tell your dentist that you have an artificial joint and take antibiotics as prescribed before any dental work. * Tell all your healthcare providers about your artificial joint before any medical procedure. * Maintain a healthy weight. Get help to lose any extra pounds. Added body weight puts stress on the knee. * Your medications may include blood-thinning medicine to prevent blood clots or antibiotics to prevent infection-prevent any falls or cuts 4. Incision Care: * Prevent infection by washing your hands often. If an infection occurs, it will need to be treated right away. * Call your doctor right away if you think you may have an infection. Symptoms include a fever or an incision that leaks white, green, or yellow fluid. * Don't soak your incision in water until your doctor says its OK. This means no hot tubs, bathtubs, or swimming pools. * Follow your doctor's instructions for changing the dressing. * Dont rub the incision, or apply creams or lotions to it. * If you notice any redness or drainage around the bandage site, contact your surgeon's office immediately. 5. Follow-Up: Do Not miss your follow-up appointment. Keep up with all your appointments and yearly check ups When to call your doctor: Call your doctor right away if you have: Fever of 100.4F (38C) or higher, or as directed by your doctor Shaking chills Stiffness, or inability to move the knee Increased swelling in your leg Increased redness, tenderness, or swelling in or around the knee incision Drainage from the knee incision Increased knee pain Call 911: Call 911 right away if you have: Chest pain Shortness of breath Any pain or tenderness in your calf
[2018-07-07 07:27] LABS: Lymphocytes 14 % (9-44); Metamyelocytes 2 % (0-1); Monocytes 4 % (0-8); Myelocytes 2 % (0-0); Promyelocyte 1 % (0-0)
[2018-07-07 07:28] LABS: Platelet Estimate Normal (Normal); Platelet Morphology Normal (Normal); RBC Morphology Normal (Normal)
[2018-07-07] MEDS ORDERED: Insulin NovoLOG Aspart Correctional Sugar Inj SQ SCH (08:00)
[2018-07-07 08:41] VITALS: O2SAT 99
[2018-07-07] MEDS: Pantoprazole Sodium 20 MG DR Tablet PO SCH (08:46)
[2018-07-07] MEDS: Multivitamin/Minerals Therapeutic Tablet PO SCH (08:46)
[2018-07-07] MEDS: predniSONE 10 MG Tablet PO SCH (08:46)
[2018-07-07] MEDS: SPIRONOLACTONE PO SCH (08:46)
[2018-07-07] MEDS: HCTZ PO SCH (08:46)
[2018-07-07] MEDS: Folic Acid 1 MG Tablet PO SCH (08:48)
[2018-07-07] MEDS: Senna/Docusate Sodium 8.6/50 MG Tablet PO SCH (08:48)
[2018-07-07] MEDS: amLODIPine 5 MG Tablet PO SCH (08:48)
[2018-07-07 13:14] VITALS: BP 129/72; PULSE 102; RESP 20; TEMP 98.1
[2018-07-07 16:43] LABS: Hemoglobin A1c 6.7 % (4.3-6.0)
== END 2018-07-07 13:15 | disposition home health service (06) ==
LOC: HSDI 05:19 → N06 10:51
PROVIDERS: ADMIT Orthopaedic Surgery; ATTEND Orthopaedic Surgery